=== PATIENT | female | born 1950 | race Caucasian/White ===

== ENCOUNTER 2019-08-26 06:12 | Day surgery (SDC) | payer MEDICARE, OTHER ==
[2019-08-26] MEDS ORDERED: MIDAZOLAM 2 MG/2 ML VIAL IVP ONE (06:13)
[2019-08-26] MEDS ORDERED: PROPOFOL 200 MG/20 ML VIAL IVP ONE (06:13)
[2019-08-26] MEDS ORDERED: LACTATED RINGERS 500 ML IV ONE (06:16)
[2019-08-26] MEDS ORDERED: PHENYLEPHRINE 2.5% OPHTH 2 ML DROPS ONE (06:19)
[2019-08-26] MEDS ORDERED: KETOROLAC 0.45% OPHTH DROPS ONE (06:19)
[2019-08-26] MEDS ORDERED: CYCLOPENTOLATE 1% OPHTH DROPS 2 ML ONE (06:19)
[2019-08-26] MEDS ORDERED: PROPARACAINE 0.5% OPHTH DROPS 15 ML ONE (06:20)
[2019-08-26] MEDS ORDERED: CYCLOPENTOLATE 1% OPHTH DROPS 2 ML RIGHTEYE ONE (06:39)
[2019-08-26] MEDS ORDERED: PROPARACAINE 0.5% OPHTH DROPS 15 ML RIGHTEYE ONE ×2 (06:39→07:24)
[2019-08-26] MEDS ORDERED: KETOROLAC 0.45% OPHTH DROPS RIGHTEYE ONE (06:39)
[2019-08-26] MEDS ORDERED: PHENYLEPHRINE 2.5% OPHTH 2 ML DROPS RIGHTEYE ONE (06:39)
[2019-08-26] MEDS ORDERED: BRIMONIDINE 0.2% OPHTH DROPS 5 ML ONE (06:50)
[2019-08-26] MEDS ORDERED: TRIAMCIN/MOXIFLOX OPHTHALMIC 0.6 ML VIAL IO ONE (06:50)
[2019-08-26] MEDS ORDERED: VANCOMYCIN OPHTHALMI 8MG/0.8ML 8 MG/0.8 ML SYRINGE IO ONE (06:51)
[2019-08-26] MEDS ORDERED: TIMOLOL 0.5% OPHTH DROPS ONE (06:51)
[2019-08-26] MEDS ORDERED: BSS/LIDOCAINE/EPINEPHRINE 1 ML SYRINGE ONE (06:51)
--- NOTE | 2019-08-26 07:09 | ANESTHESIA ---
Pre-Anesthesia VS, & Labs - Diagnosis senile combined cataract right - Procedure right cataract extraction with IOL Vital Signs: Temp Pulse Resp BP Pulse Ox 36.1 C L 64 16 133/64 H 100 08/26/19 06:31 08/26/19 06:31 08/26/19 06:31 08/26/19 06:31 08/26/19 06:31 Height 5 ft 5 in Weight (kg) 76 kg - NPO >8 hours - Is Patient ?: No Home Medications and Allergies Home Medications: Ambulatory Orders Doxycycline Hyclate 50 mg PO BID 08/25/19 Levothyroxine [Synthroid] 112 mcg PO QDAC 08/25/19 Methotrexate Sodium/Pf [Methotrexate 25 mg/ml Vial] 0.8 ml SQ OAW 08/25/19 Remicade 08/25/19 lisinopriL [Lisinopril] 10 mg PO DAILY 08/25/19 Estradiol 0.5 mg PO QDAC 03/10/14 Bupropion HCl [Wellbutrin] 150 mg PO DAILY 02/01/16 Doxycycline Hyclate 50 mg PO BID 08/25/19 Levothyroxine [Synthroid] 112 mcg PO QDAC 08/25/19 Methotrexate Sodium/Pf [Methotrexate 25 mg/ml Vial] 0.8 ml SQ OAW 08/25/19 Remicade 08/25/19 lisinopriL [Lisinopril] 10 mg PO DAILY 08/25/19 Allergies/Adverse Reactions: Allergies Allergy/AdvReac Type Severity Reaction Status Date / Time codeine Allergy Emesis Verified 08/25/19 15:07 Penicillins Allergy Unknown Verified 08/25/19 15:07 hydrocodone AdvReac Emesis Verified 08/25/19 15:07 Anes History & Medical History - Anesthetic History Anesthesia Complications: reports: No previous complications - Medical History Cardiovascular: reports: Hypertension Pulmonary: reports: None Gastrointestinal: reports: None Urinary: reports: None Musculoskeletal: reports: Rheumatoid arthritis, Chronic back pain Endocrine/Autoimmune: reports: HyPOthyroidism Skin: reports: Rosacea Smoking Status: Never smoker - Surgical History General: Cholecystectomy Eyes Ears Nose Throat (EENT): Other Gynecologic: Hysterectomy Exam General: Alert Dental: WNL Mouth Opening: Greater than 4 Fingerbreadths Neck Mobility: Normal Mallampati classification: II Respiratory: Lungs clear Cardiovascular: Regular rate, Normal S1, Normal S2 Plan Anesthesia Type: MAC Consent for Procedure(s) Verified and Reviewed: Yes Code Status: Attempt Resuscitation ASA classification: 2-Mild systemic disease Is this case an emergency?: No
[2019-08-26] MEDS ORDERED: BRIMONIDINE 0.2% OPHTH DROPS 5 ML OPTH ONE (07:39)
[2019-08-26] MEDS ORDERED: EPINEPHrine 1 MG/ML AMP IVP ONE (07:39)
[2019-08-26] MEDS ORDERED: CHONDR SULF/HYALURONATE SYRINGE IO ONE (07:40)
[2019-08-26] MEDS ORDERED: TIMOLOL 0.5% OPHTH DROPS OPTH ONE (07:40)
[2019-08-26] MEDS ORDERED: BSS/LIDOCAINE/EPINEPHRINE 1 ML SYRINGE IO ONE (07:40)
[2019-08-26 08:17] VITALS: BP 100/51
--- NOTE | 2019-08-26 08:19 | OPERATIVE REPORT ---
DATE OF SERVICE: 08/26/2019 Physician: Bao Minaya MD PREOPERATIVE DIAGNOSIS: Visually significant cataract, right eye. This was her first cataract surgery. POSTOPERATIVE DIAGNOSIS: Visually significant cataract, right eye. This was her first cataract surgery. DESCRIPTION OF PROCEDURE: Phacoemulsification with posterior chamber intraocular lens implant, right eye. SURGEON: Bao Minaya MD ANESTHESIA: Monitored anesthesia care. COMPLICATIONS: None. OPERATIVE INDICATIONS: This is a 69-year-old woman with progressive vision loss in the right eye due to 2 to 3+ nuclear sclerotic and 1+ cortical cataract. Best corrected visual acuity was 20/25 with glare to 20/40 in the right eye. Indications for surgery were difficulty seeing words, closed caption or game scores on TV. Overall decrease in vision, difficulty seeing street signs, difficulty driving in low light or at night, difficulty driving at night because of headlights from other vehicles, and difficulty with glare or bright lights in any situation. She was consented at length concerning risks and benefits of cataract surgery, after which she expressed a desire to proceed with surgery. OPERATIVE PROCEDURE: The patient was taken to OR #3 and placed under monitored anesthesia care. Surgical timeout was conducted, confirming correct patient, correct procedure, and correct surgical site. She was given topical anesthesia, and prepped and draped in the usual sterile fashion. The eye was entered at the 12 and 9 o'clock positions. Intracameral Shugarcaine was injected into the anterior chamber, followed by Viscoat. A continuous-tear curvilinear capsulorrhexis was performed. The nucleus was hydrodissected and phacoemulsified. The cortex evacuated using automated infusion and aspiration. Provisc was injected in the capsular bag, and a 21.0 diopter intraocular lens inserted in the bag. I&A was used to evacuate the viscoelastic materials. The eye was inflated to physiologic pressure using balanced salt solution and found to be watertight. Approximately 0.25 mL of a mixture of triamcinolone and moxifloxacin was injected transsclerally into the vitreous in the inferotemporal quadrant. An additional 0.55 mL mixture of triamcinolone, moxifloxacin and vancomycin was injected subconjunctivally in the superior quadrant for infection and inflammation prophylaxis. Wound integrity was checked with Weck-Chela sponges. The patient was taken from the operating room in good condition and given postoperative instructions. TD: 08/26/2019 08:03 JODI
== END 2019-08-26 06:13 | disposition home or self-care (01) ==
LOC: SDS 06:12
PROVIDERS: ATTEND Ophthalmology
PROC: 08RJ3JZ Replacement of Right Lens with Synthetic Substitute, Percutaneous Approach (ICD-10-PCS; principal; 2019-08-26 07:30)
DX: H25.811 Combined forms of age-related cataract, right eye (principal); H81.09 Meniere's disease, unspecified ear; Z87.891 Personal history of nicotine dependence
CPT/HCPCS: 66984; A9270; J3490; V2632

== ENCOUNTER 2019-10-07 07:57 | Day surgery (SDC) | payer MEDICARE, OTHER ==
[~2019-10-07 07:57] MED LIST: CYCLOPENTOLATE 1% OPHTH DROPS 2 ML ONE; KETOROLAC 0.45% OPHTH DROPS ONE; PHENYLEPHRINE 2.5% OPHTH 2 ML DROPS ONE; PROPARACAINE 0.5% OPHTH DROPS 15 ML ONE
[2019-10-07] MEDS ORDERED: fentaNYL 100 MCG/2 ML VIAL IVP ONE (07:58)
[2019-10-07] MEDS ORDERED: MIDAZOLAM 2 MG/2 ML VIAL IVP ONE (07:58)
[2019-10-07] MEDS ORDERED: LACTATED RINGERS 500 ML IV ONE (08:14)
[2019-10-07] MEDS ORDERED: CYCLOPENTOLATE 1% OPHTH DROPS 2 ML LEFTEYE ONE (08:22)
[2019-10-07] MEDS ORDERED: PROPARACAINE 0.5% OPHTH DROPS 15 ML LEFTEYE ONE ×2 (08:22→09:31)
[2019-10-07] MEDS ORDERED: KETOROLAC 0.45% OPHTH DROPS LEFTEYE ONE (08:22)
[2019-10-07] MEDS ORDERED: PHENYLEPHRINE 2.5% OPHTH 2 ML DROPS LEFTEYE ONE (08:22)
[2019-10-07] MEDS ORDERED: timoloL maleate 0.5% OPHTH DROPS (10ML) ONE (08:30)
[2019-10-07] MEDS ORDERED: BSS/LIDOCAINE/EPINEPHRINE 1 ML SYRINGE ONE (08:30)
[2019-10-07] MEDS ORDERED: BRIMONIDINE 0.2% OPHTH DROPS 5 ML ONE (08:30)
[2019-10-07] MEDS ORDERED: VANCOMYCIN OPHTHALMI 8MG/0.8ML 8 MG/0.8 ML SYRINGE IO ONE ×2 (08:30→09:32)
[2019-10-07] MEDS ORDERED: TRIAMCIN/MOXIFLOX OPHTHALMIC 0.6 ML VIAL IO ONE ×2 (08:30→09:32)
[2019-10-07] MEDS ORDERED: ONDANSETRON 4 MG/2 ML VIAL ONE (09:03)
--- NOTE | 2019-10-07 09:06 | ANESTHESIA ---
Pre-Anesthesia VS, & Labs - Diagnosis left eye cataract - Procedure left eye cataract removal and lens implant Vital Signs: Temp Pulse Resp BP Pulse Ox 36.3 C L 56 L 16 105/58 L 100 10/07/19 08:14 10/07/19 08:14 10/07/19 08:14 10/07/19 08:14 10/07/19 08:14 Height 5 ft 5 in Weight (kg) 76.2 kg - Is Patient ?: No Home Medications and Allergies Estradiol 0.5 mg PO QDAC 03/10/14 Bupropion HCl [Wellbutrin] 150 mg PO DAILY 02/01/16 Doxycycline Hyclate 50 mg PO BID 08/25/19 Levothyroxine [Synthroid] 112 mcg PO QDAC 08/25/19 Methotrexate Sodium/Pf [Methotrexate 25 mg/ml Vial] 0.8 ml SQ OAW 08/25/19 Remicade 08/25/19 lisinopriL [Lisinopril] 10 mg PO DAILY 08/25/19 Allergies/Adverse Reactions: Allergies Allergy/AdvReac Type Severity Reaction Status Date / Time codeine Allergy Emesis Verified 08/25/19 15:07 Penicillins Allergy Unknown Verified 08/25/19 15:07 hydrocodone AdvReac Emesis Verified 08/25/19 15:07 Anes History & Medical History - Anesthetic History Anesthesia Complications: reports: No previous complications Family history of Anesthesia Complications: Denies Family history of Malignant Hyperthermia: Denies - Medical History Cardiovascular: reports: Hypertension Pulmonary: reports: None Gastrointestinal: reports: None Urinary: reports: None Neuro: reports: None Musculoskeletal: reports: Rheumatoid arthritis, Chronic back pain Endocrine/Autoimmune: reports: HyPOthyroidism Blood Disorders: reports: None Skin: reports: Rosacea Smoking Status: Never smoker Psychosocial: reports: Depression - Surgical History General: Cholecystectomy Eyes Ears Nose Throat (EENT): Other Gynecologic: Hysterectomy Exam General: Alert, Oriented x3, Cooperative, No acute distress Dental: WNL Mouth Openin Fingerbreadth Neck Mobility: Normal Mallampati classification: II Thyromental Distance: 4-6 cm Respiratory: Lungs clear, Normal breath sounds, No respiratory distress, No accessory muscle use Cardiovascular: Regular rate, Normal S1, Normal S2, No murmurs Abdomen: Normal bowel sounds, Soft, No tenderness, No hepatospenomegaly, No masses Extremities: No clubbing, No cyanosis, No edema, Normal pulses, No tenderness/swelling Neurological: Normal gait, Normal speech, Strength at 5/5 X4 ext, Normal tone, Sensation intact, Cranial nerves 3-12 NL, Reflexes 2+ Mental/Cognitive Status: Alert/Oriented X3, Normal for patient Cognitive Status: Within normal limits Plan Anesthesia Type: MAC Consent for Procedure(s) Verified and Reviewed: Yes Code Status: Attempt Resuscitation ASA classification: 2-Mild systemic disease Is this case an emergency?: No
[2019-10-07] MEDS ORDERED: BRIMONIDINE 0.2% OPHTH DROPS 5 ML OPTH ONE (09:30)
[2019-10-07] MEDS ORDERED: EPINEPHrine 1 MG/ML AMP IVP ONE (09:30)
[2019-10-07] MEDS ORDERED: TIMOLOL 0.5% OPHTH DROPS OPTH ONE (09:31)
[2019-10-07] MEDS ORDERED: CHONDR SULF/HYALURONATE SYRINGE IO ONE (09:31)
[2019-10-07] MEDS ORDERED: BSS/LIDOCAINE/EPINEPHRINE 1 ML SYRINGE IO ONE (09:31)
[2019-10-07 10:05] VITALS: BP 88/45
--- NOTE | 2019-10-07 10:36 | OPERATIVE REPORT ---
DATE OF SERVICE: 10/07/2019 Physician: Bao Minaya MD PREOPERATIVE DIAGNOSIS: Visually significant cataract, left eye. Cataract surgery was performed on the right eye on 08/26/2019. POSTOPERATIVE DIAGNOSIS: Visually significant cataract, left eye. Cataract surgery was performed on the right eye on 08/26/2019. PROCEDURE: Phacoemulsification with posterior chamber intraocular lens implant, left eye. SURGEON: Bao Minaya MD ANESTHESIA: Monitored anesthesia care. COMPLICATIONS: None. OPERATIVE INDICATIONS: This is a 69-year-old woman with progressive vision loss in the left eye due to 2-3+ nuclear sclerotic cataract. Best corrected visual acuity was 20/40 in the left eye. Indications for surgery were overall decrease in vision, difficulty seeing words, closed caption or game scores on TV, difficulty seeing street signs, difficulty driving in low light or at night, difficulty driving at night because of headlights from other vehicles, and difficulty with glare or bright lights in any situation. She was consented at length concerning risks and benefits of cataract surgery, after which she expressed a desire to proceed with surgery. OPERATIVE PROCEDURE: The patient was taken to OR #3 and placed under monitored anesthesia care. A surgical timeout was conducted confirming correct patient, correct procedure, and correct surgical site. She was given topical anesthesia, and prepped and draped in the usual sterile fashion. The eye was entered at the 6 and 3 o'clock positions. Intracameral Shugarcaine was injected into the anterior chamber, followed by Viscoat. A continuous-tear curvilinear capsulorrhexis was performed. The nucleus was hydrodissected and phacoemulsified. The cortex was evacuated using automated infusion and aspiration. Provisc was injected in the capsular bag and a 21.5 diopter intraocular lens was inserted into the bag. Infusion and aspiration was used to evacuate the viscoelastic materials. The eye was inflated to physiologic pressure using balanced salt solution and found to be watertight. Approximately 0.25 mL of a mixture of triamcinolone, moxifloxacin was injected transsclerally into the vitreous in inferotemporal quadrant. An additional 0.55 mL of a mixture of triamcinolone, moxifloxacin and vancomycin was injected subconjunctivally in the superior quadrant for infection and inflammation prophylaxis. Wound integrity was checked with Weck-Chela sponges. Patient was taken from the operating room in good condition and given postoperative instructions. TD: 10/07/2019 09:49 JODI
== END 2019-10-07 07:58 | disposition home or self-care (01) ==
LOC: SDS 07:57
PROVIDERS: ATTEND Ophthalmology
DX: H25.12 Age-related nuclear cataract, left eye (principal); I10 Essential (primary) hypertension; Z98.41 Cataract extraction status, right eye; Z79.899 Other long term (current) drug therapy
CPT/HCPCS: 66984; A9270; J3490; V2632

== ENCOUNTER 2020-02-19 10:59 | Emergency (ER) | payer MEDICARE, OTHER ==
--- NOTE | 2020-02-19 11:24 | ED Physician Documentation ---
PD HPI URI - Stated complaint Stated Complaint: SOA - Chief complaint Chief Complaint: Resp - History obtained from History obtained from: Patient - History of Present Illness Timing - onset: How many weeks ago (has had nasal drainage and feeling of sinus pressure for many weeks. Has been using Flonase and antihistamine. Had 2 courses of Zpack by PMD without change. Seen by ENT last week with scope of nasopharynx that did not show significant abnormality. Has ordered sinus CT by ENT, is scheduled for 2 week) Timing duration: Weeks (also with nonproductive cough for over 3 weeks, she had attributed to the drainage.) Timing details: Gradual onset (now has cough and feeling of dyspnea with tightness in throat. Not lump feeling per se.) Associated symptoms: Nasal congestion, Sore throat, Dry cough, Dyspnea (the past couple of days). No: Fever, Swollen nodes, Hemoptysis, Chest pain (but has throat pain with coughing.) Contributing factors: Immunocompromised (has RA and is on Remicaid.). No: Sick contact, COPD / asthma Similar symptoms before: No diagnosis Recently seen: Clinic (Seen by [facility] in [place] 3 days ago.) Review of Systems Constitutional: reports: Fatigue. denies: Fever, Chills, Myalgias, Weight Loss Ears: denies: Loss of hearing, Ear pain Nose: reports: Congestion, Sinus pressure / pain. denies: Rhinorrhea / runny nose Throat: reports: Sore throat Cardiac: denies: Palpitations, Pedal edema, Calf pain Respiratory: reports: Dyspnea, Cough. 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 HEENT: Other - Present Medications Home Medications: Ambulatory Orders Medication Instructions Recorded Confirmed Estradiol 0.5 mg PO QDAC 03/10/14 10/06/19 Bupropion HCl [Wellbutrin] 150 mg PO DAILY 02/01/16 10/06/19 Doxycycline Hyclate 50 mg PO BID 08/25/19 10/06/19 Levothyroxine [Synthroid] 112 mcg PO QDAC 08/25/19 10/06/19 Methotrexate Sodium/Pf 0.8 ml SQ OAW 08/25/19 10/06/19 [Methotrexate 25 mg/ml Vial] Remicade 08/25/19 lisinopriL [Lisinopril] 10 mg PO DAILY 08/25/19 10/06/19 Lidocaine Viscous 2% [Xylocaine 5 ml PO Q4H PRN #100 ml 02/19/20 Viscous 2%] Losartan [Cozaar] 50 mg PO DAILY #20 tablet 02/19/20 dexAMETHasone [Decadron] 4 mg PO DAILY #5 tablet 02/19/20 - Allergies Allergies/Adverse Reactions: Allergies Allergy/AdvReac Type Severity Reaction Status Date / Time codeine Allergy Emesis Verified 02/19/20 11:14 Penicillins Allergy Unknown Verified 02/19/20 11:14 hydrocodone AdvReac Emesis Verified 02/19/20 11:14 - Social History Does the pt smoke?: No Smoking Status: Never smoker Does the pt drink ETOH?: No Does the pt have substance abuse?: No - Immunizations Immunizations are current?: Yes - POLST Patient has POLST: No PD ED PE NORMAL - Vitals Vital signs reviewed: Yes - General General: Alert and oriented X 3, No acute distress, Well developed/nourished - HEENT HEENT: Moist mucous membranes, Pharynx benign, Other (nares patent) - Neck Neck: Supple, no meningeal sign, No adenopathy, No JVD - Cardiac Cardiac: RRR, No murmur - Respiratory Respiratory: No respiratory distress, Clear bilaterally - Derm Derm: Normal color, Warm and dry - Neuro Neuro: Alert and oriented X 3, No motor deficit, Normal speech - Psych Psych: No: Normal affect (anxious) Results - Vitals Vitals: Vital Signs - 24 hr 02/19/20 02/19/20 02/19/20 11:10 11:14 12:15 Temperature 36.2 C L Heart Rate 86 85 79 Respiratory 18 16 17 Rate Blood Pressure 146/79 H 135/65 H O2 Saturation 100 100 02/19/20 02/19/20 14:38 14:39 Temperature 37.3 C 36.8 C Heart Rate 78 80 Respiratory 20 16 Rate Blood Pressure 102/60 110/62 O2 Saturation 94 98 Oxygen O2 Source Room air - Labs Labs: Laboratory Tests 02/19/20 02/19/20 11:57 11:57 WBC 3.1 L RBC 4.34 Hgb 14.0 Hct 40.3 MCV 92.9 MCH 32.3 H MCHC 34.7 RDW 12.6 Plt Count 167 MPV 8.9 Neut # (Auto) 2.2 Lymph # (Auto) 0.6 L Tillman # (Auto) 0.4 Eos # (Auto) 0.0 Baso # (Auto) 0.0 Absolute Nucleated RBC 0.00 Nucleated RBC % 0.0 Sodium 134 L Potassium 3.5 Chloride 100 L Carbon Dioxide 24 Anion Gap 10.0 BUN 11 Creatinine 0.8 Estimated GFR (MDRD) 72 L Glucose 98 Calcium 8.9 Total Bilirubin 1.0 AST 24 ALT 17 Alkaline Phosphatase 48 Total Protein 7.6 Albumin 4.3 Globulin 3.3 Albumin/Globulin Ratio 1.3 Lipase 51 - Rads (name of study) soft tissue neck CT (included sinuses) Radiology: Prelim report reviewed (no acute process noted. ), See rad report PD MEDICAL DECISION MAKING - ED course Complexity details: re-evaluated patient (not wheezing but tried Albuterol neb and she says felt some better. Did feel better with Ativan. Some portion does seem anxiety. ), considered differential (has had cough without obvious cause. Could be sinus drainage/allergies. Sinus portion of CT normal. No focal swelling in throat/airway. Consider NOE side effect (on Lisinopril). ), d/w patient Departure - Departure Disposition: 01 Home, Self Care Clinical Impression: Persistent cough for 3 weeks or longer, Throat irritation Dyspnea Qualifiers: Dyspnea type: shortness of breath Qualified Code(s): R06.02 - Shortness of breath Condition: Stable Record reviewed to determine appropriate education?: Yes Follow-Up: Gaby Arreola PA-C [Primary Care Provider] - Prescriptions: Losartan [Cozaar] 50 mg PO DAILY #20 tablet dexAMETHasone [Decadron] 4 mg PO DAILY #5 tablet Lidocaine Viscous 2% [Xylocaine Viscous 2%] 5 ml PO Q4H PRN #100 ml PRN Reason: Pain Comments: Your CT scan does not show any visible swelling or edema or localized area of inflammation. I think the feeling of shortness of breath is related to some tightness in 3 your upper airway probably from the irritation from coughing. We can try to reduce irritation with some liquid Benadryl and lidocaine. Use as prescribed. You can continue the benzonatate if needed for cough as well. Add Decadron steroid for mild inflammation that may be occurring. Take this daily for the next 5 days. Continue your other usual medicines except for the lisinopril. Given no other obvious cause on the cough at this time, I would consider a side effect of the lisinopril and have you discontinue its use. So, stop the Lisinopril. Check your blood pressure over the next week or 2. Follow-up with your primary care later this coming week. Its okay for blood pressure is a little bit high during the next week as it would be better to not necessarily start a new medicine to confuse potential side effects. However if your blood pressure does go significantly elevated you could start losartan as a new blood pressure medicine. Discharge Date/Time: 02/19/20 14:47
[2020-02-19] MEDS ORDERED: LORazepam 2 MG/ML VIAL IVP STA ×2 (11:44→13:53)
[2020-02-19] MEDS ORDERED: ALBUTEROL NEB 2.5 MG/3 ML INH STA (11:44)
[2020-02-19] MEDS ORDERED: DEXAMETHASONE 10 MG/ML VIAL IVP STA (11:45)
[2020-02-19 12:07] LABS: BASOPHILS % (AUTO) 0.3 %; LYMPHOCYTES # (AUTO) 0.6 10^3/uL (1.5-3.5); LYMPHOCYTES % (AUTO) 18.2 %; MEAN CORPUSCULAR HEMOGLOBIN 32.3 pg (27.0-31.0); MEAN CORPUSCULAR HGB CONC 34.7 g/dL (32.0-36.0); MEAN CORPUSCULAR VOLUME 92.9 fL (81.0-99.0); MEAN PLATELET VOLUME 8.9 fL (7.9-10.8); MONOCYTES # (AUTO) 0.4 10^3/uL (0.0-1.0); MONOCYTES % (AUTO) 11.5 %; NEUTROPHILS # (AUTO) 2.2 10^3/uL (1.5-6.6); NEUTROPHILS % (AUTO) 69.7 %; PLT - PLATELET COUNT 167 10^3/uL (130-450); RED BLOOD COUNT 4.34 10^6/uL (4.20-5.40); RED CELL DISTRIBUTION WIDTH 12.6 % (12.0-15.0); WHITE BLOOD COUNT 3.1 x10^3/uL (4.8-10.8)
[2020-02-19 12:15] LABS: ALBUMIN 4.3 g/dL (3.2-5.5); ALBUMIN/GLOBULIN RATIO 1.3 (1.0-2.2); CALCIUM 8.9 mg/dL (8.5-10.3); CREATININE 0.8 mg/dL (0.4-1.0); TOTAL PROTEIN 7.6 g/dL (6.7-8.2)
[2020-02-19] MEDS ORDERED: IOVERSOL 320 100 ML VIAL IVP ONE ×2 (12:20→14:56)
--- NOTE | 2020-02-19 12:21 | XRAY Report ---
PROCEDURE: Chest 1 View X-Ray INDICATIONS: dyspnea/cough TECHNIQUE: One view of the chest was acquired. COMPARISON: None available FINDINGS: Surgical changes and devices: None. Lungs and pleura: An incomplete inspiratory result is noted, with low lung volumes and crowding of t he vascular markings. No focal infiltrates are seen. No large pneumothorax or large pleural effusion can be seen. Mediastinum: Mediastinal contours appear normal. Heart size is normal. Bones and chest wall: No suspicious bony lesions. Age-appropriate degenerative changes are seen. Overlying soft tissues appear unremarkable. IMPRESSION: Portable chest within normal limits for age. Reviewed by: Travis Herrera MD on 02/19/2020 11:20 AM SOLO Approved by: Travis Herrera MD on 02/19/2020 11:20 AM SOLO Station ID: [id number]
[2020-02-19] MEDS ORDERED: ACETAMINOPHEN 1,000 MG/100 ML 100 ML IV ONE (13:13)
[2020-02-19] MEDS ORDERED: KETOROLAC 15 MG/ML VIAL IVP STA (13:13)
--- NOTE | 2020-02-19 13:26 | CT Report ---
PROCEDURE: SOFT TISSUE NECK W INDICATIONS: feeling of swelling in throat/dyspnea CONTRAST: IV CONTRAST: Optiray 320 ml: 100 PO CONTRAST: *NO PO CONTRAST TECHNIQUE: After the administration of intravenous contrast, 3.0 mm axial sections acquired from the sella to th e aortic arch. Additional oblique axial 3.0 mm sections acquired through the pharynx. 3 mm thick co teo reformats were generated. For radiation dose reduction, the following was used: automated exp osure control, adjustment of mA and/or kV according to patient size. COMPARISON: None. FINDINGS: Image quality: Excellent. Lymph nodes: No enlarged lymph nodes seen throughout the neck. Vessels: Visualized vasculature appears patent. Neck spaces: The oropharynx, nasopharynx, and pharynx demonstrate no mucosal lesions. The vocal cor ds, false vocal cords, pyriform sinuses, epiglottis, vallecula, and tongue base all appear normal. E xtramucosal spaces appear unremarkable. Glands: The parotid and submandibular glands appear normal. The thyroid is normal in size. Miscellaneous: Visualized brain and orbits appear normal. Mild emphysematous changes are seen at th e lung apices. Superficial soft tissues appear normal. Bones: No suspicious bony lesions. Visualized sinuses and mastoids appear unremarkable. Cervical sp ine degenerative changes are seen, including moderate to severe disc space narrowing at C6-C7 and mod erate disc space narrowing at C5-C6. Bridging anterior osteophytes are seen at these levels. Milder d egenerative changes are seen elsewhere. IMPRESSION: No mucosal masses are seen. No enlarged lymph nodes are seen. No thyroid abnormality is seen. Incidental note is made of: Cervical spine degenerative change Mild emphysema Reviewed by: Travis Herrera MD on 02/19/2020 12:25 PM AKDT Approved by: Travis Herrera MD on 02/19/2020 12:25 PM AKDT Station ID: [id number]
[2020-02-19] MEDS ORDERED: diphenhydrAMINE ELIXIR 25 MG/10 ML UDC PO STA (13:53)
[2020-02-19] MEDS ORDERED: LIDOCAINE VISCOUS 2% 15 ML UDC MM STA (13:53)
[2020-02-19 14:47] VITALS: BP 110/62
== END 2020-02-19 14:47 | disposition home or self-care (01) ==
LOC: ED 10:59
DX: R05 Cough (principal); R07.0 Pain in throat; R06.02 Shortness of breath; Z20.828 Contact with and (suspected) exposure to other viral communicable diseases; F41.9 Anxiety disorder, unspecified; I49.1 Atrial premature depolarization; I10 Essential (primary) hypertension; M50.322 Other cervical disc degeneration at C5-C6 level; M48.02 Spinal stenosis, cervical region
CPT/HCPCS: 36415; 70491; 71045; 80053; 83690; 85025; 93005; 94640; 96374; 96375; 99284; A9270; J2060; Q9967; U0004

== ENCOUNTER 2020-02-20 19:35 | Emergency (ER) | payer MEDICARE, OTHER ==
--- NOTE | 2020-02-20 20:18 | XRAY Report ---
PROCEDURE: Chest 1 View X-Ray INDICATIONS: dyspnea, +covid TECHNIQUE: One view of the chest was acquired. COMPARISON: 02/19/2020 FINDINGS: Surgical changes and devices: None. Lungs and pleura: No pleural effusions or pneumothorax. Minimal patchy density, left lung, possibly representing pneumonitis. Mediastinum: Mediastinal contours appear normal. Heart size is normal. Bones and chest wall: No suspicious bony lesions. Overlying soft tissues appear unremarkable. IMPRESSION: Question subtle findings of viral pneumonitis, left chest. Reviewed by: Donovan Hyde MD on 02/20/2020 8:17 PM PDT Approved by: Donovan Hyde MD on 02/20/2020 8:17 PM PDT Station ID: [id number]
--- NOTE | 2020-02-20 20:54 | ED Physician Documentation ---
PD HPI URI - Stated complaint Stated Complaint: SOA - Chief complaint Chief Complaint: Resp - History obtained from History obtained from: Patient - History of Present Illness Timing - onset: How many weeks ago (3) Timing duration: Weeks (3) Timing details: Still present Associated symptoms: Nasal congestion, Sinus pain, Sore throat, Dry cough. No: Fever Contributing factors: No: Sick contact, Travel, Immunocompromised Improves by: No: Medication (not great improvement with meds at home.) Worsened by: Activity, Other (she is very anxious about the positive COVID result.) Similar symptoms before: Has not had sx before Recently seen: Clinic (seen by ENT 3 days prior.), Emergency Dept (yesterday, and had imaging and meds. Had COVID test obtained, which showed positive result today.) Review of Systems Constitutional: reports: Myalgias, Fatigue. denies: Fever, Chills Nose: reports: Rhinorrhea / runny nose, Sinus pressure / pain. denies: Congestion Throat: reports: Sore throat Cardiac: denies: Chest pain / pressure Respiratory: reports: Dyspnea, Cough. denies: Wheezing GI: denies: Nausea, Vomiting, Diarrhea Skin: denies: Rash Neurologic: reports: Generalized weakness. denies: Near syncope, Altered mental status, Headache PD PAST MEDICAL HISTORY - Past Medical History Past Medical History: Yes Cardiovascular: Hypertension Respiratory: None Neuro: None Endocrine/Autoimmune: HyPOthyroidism GI: None : None HEENT: Chronic vision loss, Other Psych: Depression Musculoskeletal: Rheumatoid arthritis, Chronic back pain Derm: Rosacea - Past Surgical History Past Surgical History: Yes General: Cholecystectomy /[employer]: Hysterectomy HEENT: Other - Present Medications Home Medications: Ambulatory Orders Medication Instructions Recorded Confirmed Estradiol 0.5 mg PO QDAC 03/10/14 10/06/19 Bupropion HCl [Wellbutrin] 150 mg PO DAILY 02/01/16 10/06/19 Doxycycline Hyclate 50 mg PO BID 08/25/19 10/06/19 Levothyroxine [Synthroid] 112 mcg PO QDAC 08/25/19 10/06/19 Methotrexate Sodium/Pf 0.8 ml SQ OAW 08/25/19 10/06/19 [Methotrexate 25 mg/ml Vial] Remicade 08/25/19 lisinopriL [Lisinopril] 10 mg PO DAILY 08/25/19 10/06/19 Lidocaine Viscous 2% [Xylocaine 5 ml PO Q4H PRN #100 ml 02/19/20 Viscous 2%] Losartan [Cozaar] 50 mg PO DAILY #20 tablet 02/19/20 dexAMETHasone [Decadron] 4 mg PO DAILY #5 tablet 02/19/20 Albuterol Sulfate [Albuterol 3 puffs IH QID #1 hfa.aer.ad 02/20/20 Sulfate Hfa] diazePAM [Diazepam] 5 mg PO BID PRN #20 tablet 02/20/20 - Allergies Allergies/Adverse Reactions: Allergies Allergy/AdvReac Type Severity Reaction Status Date / Time codeine Allergy Emesis Verified 02/19/20 11:14 Penicillins Allergy Unknown Verified 02/19/20 11:14 hydrocodone AdvReac Emesis Verified 02/19/20 11:14 - Social History Does the pt smoke?: No Smoking Status: Never smoker Does the pt drink ETOH?: No Does the pt have substance abuse?: No - Immunizations Immunizations are current?: Yes - POLST Patient has POLST: No PD ED PE NORMAL - Vitals Vital signs reviewed: Yes - General General: Alert and oriented X 3, Well developed/nourished, Other (Repetitive coughing and a feeling of dyspnea but is able to talk in complete sentences) - HEENT HEENT: Ears normal, Pharynx benign - Neck Neck: Supple, no meningeal sign, No adenopathy - Cardiac Cardiac: RRR, No murmur - Respiratory Respiratory: No respiratory distress (she has tachypnea but not accessory muscle use. Able to talk in complete sentences. ), Clear bilaterally - Abdomen Abdomen: Soft, Non tender - Derm Derm: Normal color, Warm and dry, No rash - Extremities Extremities: No tenderness to palpate, Normal ROM s pain, No edema, No calf tenderness / cord - Neuro Neuro: Alert and oriented X 3, No motor deficit, Normal speech Results - Vitals Vitals: Vital Signs - 24 hr 02/20/20 02/20/20 02/20/20 19:51 19:56 22:35 Temperature 2.7 C L Heart Rate 74 83 Respiratory 25 H 22 Rate Blood Pressure 131/65 H O2 Saturation 100 02/20/20 23:43 Temperature Heart Rate 77 Respiratory 27 H Rate Blood Pressure 90/56 L O2 Saturation 93 Oxygen O2 Source Room air - Labs Labs: Laboratory Tests 02/20/20 02/20/20 19:45 19:45 WBC 5.4 RBC 4.45 Hgb 14.0 Hct 41.8 MCV 93.9 MCH 31.5 H MCHC 33.5 RDW 12.8 Plt Count 240 MPV 9.1 Neut # (Auto) 3.7 Lymph # (Auto) 1.1 L Antelope # (Auto) 0.5 Eos # (Auto) 0.1 Baso # (Auto) 0.0 Absolute Nucleated RBC 0.00 Nucleated RBC % 0.0 Sodium 137 Potassium 3.6 Chloride 101 Carbon Dioxide 24 Anion Gap 12.0 BUN 18 Creatinine 0.9 Estimated GFR (MDRD) 62 L Glucose 101 H Calcium 9.5 Total Bilirubin 0.6 AST 24 ALT 19 Alkaline Phosphatase 48 Total Protein 7.9 Albumin 4.2 Globulin 3.7 Albumin/Globulin Ratio 1.1 Lipase 56 H - Rads (name of study) chestx ray Radiology: Prelim report reviewed (No infiltrates or local abnormalities seen), See rad report PD MEDICAL DECISION MAKING - ED course Complexity details: re-evaluated patient (She does feel better with some Ativan and viscous lidocaine and albuterol inhaler in combination. She was walked a little bit in the room and did not desaturate. No criteria for admission at this time. They are advised to return if worsening as there can be escalation of symptoms certainly.), considered differential (Similar presentation to yesterday with a persistent cough and a subjective feeling of dyspnea. She has good airflow. She had a CT of the neck yesterday without any angioedema or focal swelling. I think it may be upper airway spasming), d/w patient Departure - Departure Disposition: 01 Home, Self Care Clinical Impression: COVID-19 virus detected, Persistent cough for 3 weeks or longer, Anxiety about health Dyspnea Qualifiers: Dyspnea type: shortness of breath Qualified Code(s): R06.02 - Shortness of breath Condition: Stable Record reviewed to determine appropriate education?: Yes Instructions: ED Dyspnea Shortness of Breath, Flu and Cold: Nutrition, Prevention and Treatment Tips Follow-Up: Gaby Arreola PA-C [Primary Care Provider] - Prescriptions: Albuterol Sulfate [Albuterol Sulfate Hfa] 3 puffs IH QID #1 hfa.aer.ad diazePAM [Diazepam] 5 mg PO BID PRN #20 tablet PRN Reason: Anxiety Comments: Stay well-hydrated. Sips of cool water or ice may help with the throat. Continue the Decadron daily. Use albuterol inhaler 2 to 3 puffs 4 times a day. Use the lidocaine with Benadryl liquid to help with throat irritation. Activity as tolerated. diazepam as needed for anxiety and spasms. Contact your primary care to update them in the next day or 2. Return as needed for worsening. Discharge Date/Time: 02/21/20 00:04
[2020-02-20] MEDS ORDERED: ALBUTEROL 1 PUFF INH STA (21:26)
[2020-02-20] MEDS ORDERED: diphenhydrAMINE ELIXIR 25 MG/10 ML UDC PO STA (21:26)
[2020-02-20] MEDS ORDERED: LORazepam 2 MG/ML VIAL IVP STA (21:26)
[2020-02-20] MEDS ORDERED: LIDOCAINE VISCOUS 2% 15 ML UDC MM STA (21:26)
[2020-02-20] MEDS ORDERED: DEXAMETHASONE 10 MG/ML VIAL IVP STA (21:44)
[2020-02-20 21:59] LABS: BASOPHILS % (AUTO) 0.2 %; EOSINOPHILS # (AUTO) 0.1 10^3/uL (0.0-0.7); EOSINOPHILS % (AUTO) 2.1 %; LYMPHOCYTES # (AUTO) 1.1 10^3/uL (1.5-3.5); LYMPHOCYTES % (AUTO) 20.4 %; MEAN CORPUSCULAR HEMOGLOBIN 31.5 pg (27.0-31.0); MEAN CORPUSCULAR HGB CONC 33.5 g/dL (32.0-36.0); MEAN CORPUSCULAR VOLUME 93.9 fL (81.0-99.0); MEAN PLATELET VOLUME 9.1 fL (7.9-10.8); MONOCYTES # (AUTO) 0.5 10^3/uL (0.0-1.0); NEUTROPHILS # (AUTO) 3.7 10^3/uL (1.5-6.6); NEUTROPHILS % (AUTO) 68.1 %; PLT - PLATELET COUNT 240 10^3/uL (130-450); RED BLOOD COUNT 4.45 10^6/uL (4.20-5.40); RED CELL DISTRIBUTION WIDTH 12.8 % (12.0-15.0); WHITE BLOOD COUNT 5.4 x10^3/uL (4.8-10.8)
[2020-02-20 22:10] LABS: ALBUMIN 4.2 g/dL (3.2-5.5); ALBUMIN/GLOBULIN RATIO 1.1 (1.0-2.2); BILIRUBIN,TOTAL 0.6 mg/dL (0.2-1.0); CALCIUM 9.5 mg/dL (8.5-10.3); CREATININE 0.9 mg/dL (0.4-1.0); TOTAL PROTEIN 7.9 g/dL (6.7-8.2)
[2020-02-20 23:44] VITALS: BP 90/56
== END 2020-02-21 00:04 | disposition home or self-care (01) ==
LOC: ED 19:35
DX: U07.1 COVID-19 (principal); R06.02 Shortness of breath; R05 Cough; F41.9 Anxiety disorder, unspecified; I10 Essential (primary) hypertension
CPT/HCPCS: 36415; 71045; 80053; 83690; 85025; 94640; 94664; 96374; 96375; 99284; A9270; J2060

== ENCOUNTER 2020-04-05 12:38 | Outpatient (CLI) | payer MEDICARE, OTHER | END 2020-04-05 12:39 | disposition home or self-care (01) | LOC: COV 12:38 | PROVIDERS: ATTEND Physician Assistant | DX: J06.9 Acute upper respiratory infection, unspecified (principal); Z20.828 Contact with and (suspected) exposure to other viral communicable diseases ==

== ENCOUNTER 2023-07-25 09:43 | Outpatient (CLI) | payer MEDICARE, OTHER ==
--- NOTE | 2023-07-25 11:12 | CT Report ---
PROCEDURE: SINUS SCREENING WO INDICATIONS: SINUSITIS TECHNIQUE: Noncontrast 3.0 mm axial images acquired from the frontal sinuses to the mid-sella, with coronal and sagittal reformats. For radiation dose reduction, the following was used: automated exposure control , adjustment of mA and/or kV according to patient size. COMPARISON: Correlation is made with soft tissue neck CT, 02/19/[address], 02/19/2020 FINDINGS: Image quality: Excellent. Maxillary Sinuses: Portions of the superior medial andrade of the maxillary sinuses have been removed. Sinuses are clear. Ethmoid Air Cells: Portions of the ethmoid air cell septations have been removed. There is a mild de gree of mucosal thickening seen within the ethmoid air cells. Sphenoid Sinuses: No bony remodeling or destruction. Sinuses are clear. Frontal Sinuses: No bony remodeling or destruction. Sinuses are clear. Ostiomeatal Complexes: Removed. Miscellaneous: Visualized intra-orbital contents are normal. There are small bilateral douglas bullo sa. No nasal septal deviation. IMPRESSION: Focal ethmoid paranasal mucosal thickening, which is improved compared to 2020. Prior bilateral antrectomy. Prior postoperative change, with bilateral antrectomy. Reviewed by: Travis Herrera MD on 07/25/2023 10:11 AM [facility] Approved by: Travis Herrera MD on 07/25/2023 10:11 AM [facility] Station ID: [id number]
== END 2023-07-25 09:44 | disposition home or self-care (01) ==
LOC: DI 09:43
PROVIDERS: ATTEND Nurse Practitioner Family
DX: J32.8 Other chronic sinusitis (principal)